=== PATIENT | male | born 1980 | race Caucasian/White ===

== ENCOUNTER 2018-11-16 07:06 | Emergency (ER) | payer OTHER ==
[~2018-11-16] VITALS: Ht 182.9 cm; Wt 88.5 kg
[2018-11-16 07:10] VITALS: BP 153/103
[2018-11-16] MEDS ORDERED: NITROGLYCERIN0.4 MG SUBLING (07:25)
[2018-11-16] MEDS ORDERED: ASPIR 8181 MG PO (07:25)
[2018-11-16 07:31] LABS: ABSOLUTE NEUTROPHILS 12.5 thou/uL (1.4-8.2); BASOPHILS 1.1 % (0.0-2.0); EOSINOPHILS 3.1 % (0.0-3.0); HEMATOCRIT 43.8 % (42.0-52.0); HEMOGLOBIN 14.8 gm/dL (14.0-18.0); LYMPHOCYTES 17.8 % (24.0-44.0); MCHC 33.8 g/dL (28.0-37.0); MCV 88.9 fL (80.0-100.0); MONOCYTES 4.6 % (1.0-8.0); PLATELET COUNT 376 thou/uL (150-400); POLYS 73.4 % (36.0-66.0); RBC 4.93 mil/uL (4.50-6.00); RDW 13.4 % (10.5-14.5); WBC 17.1 thou/uL (4.0-11.0)
[2018-11-16 07:35] LABS: ANION GAP 13 mmol/L (7-16); BUN 14 mg/dL (7-18); CALCIUM 9.7 mg/dL (8.5-10.1); CHLORIDE 104 mmol/L (98-107); CO2 24 mmol/L (21-32); GLUCOSE 144 mg/dL (74-106); POTASSIUM 3.8 mmol/L (3.5-5.1); SODIUM 141 mmol/L (136-145)
[2018-11-16] MEDS ORDERED: CARVEDILOL3.125 MG PO (07:41)
[2018-11-16] MEDS ORDERED: ADDERALL 20 MG20 M1 PO (07:41)
[2018-11-16] MEDS ORDERED: BRILINTA90 MG PO (07:41)
[2018-11-16] MEDS ORDERED: ATORVASTATIN CA40 MG PO (07:41)
[2018-11-16] MEDS ORDERED: SERTRALINE HCL50 MG PO (07:42)
[2018-11-16] MEDS ORDERED: OMEPRAZOLE20 M2 PO (07:42)
[2018-11-16 07:43] LABS: TROPONIN-I <0.06 ng/mL (<0.06)
--- NOTE | 2018-11-16 09:14 | EKG ---
[place] [address] [facility] [place] [address] ELECTROCARDIOGRAM REPORT Name: LUPILOL COVINGTON Room #: REG ROSALINE Persaud#: [id number] ������������������ Admission: 11/16/18 ������������������ Attend Phys: Discharge: ������������������ Date of : 82 Report #: [id number] ����������������������������������������������������������������� [id number] THIS REPORT FOR: //name// [facility] ED Test Date: 2018-11-16 Test Time: 07:12:27 Pat Name: LUPILLO COVINGTON Department: Room: Gender: Tester Operator: IVONE : 1980 Requested By: Jerel Asencio Order Number: [id number] MD: Juarez Villegas Measurements Intervals [place] Rate: 69 P: 69 [place]: 149 QRS: 72 QRSD: 103 T: 51 QT: 395 QTc: 423 Interpretive Statements Sinus rhythm Atrial premature complex Nonspecific ST segment abnormality Baseline wander in lead(s) II,III,aVF No previous ECG available for comparison Electronically Signed On 11-16-2018 9:13:54 CDT by Juarez Villegas [email or web address] ��������������������������������������������� <ELECTRONICALLY SIGNED> ���������������������������������������� By: Juarez Villegas MD, LOCATED WITHIN [facility] ��������������������������������������������� 11/16/18912 1 1 Juarez Villegas MD, FACC /EPI
[2018-11-16 10:32] LABS: ALBUMIN 4.1 g/dL (3.4-5.0); DIRECT BILIRUBIN < 0.1 mg/dL (<0.1-0.3); LIPASE 113 U/L (73-393); SGOT 30 U/L (15-37); SGPT 50 U/L (30-65); TOTAL BILIRUBIN 0.2 mg/dL (<0.1-1.0); TOTAL PROTEIN 7.2 g/dL (6.4-8.2)
[2018-11-16 10:57] LABS: AMP/METHAMP Negative (Negative); BARBITURATES Negative (Negative); BENZODIAZEPINES Negative (Negative); COCAINE Negative (Negative); METHADONE Negative (Negative); OPIATES POSITIVE (Negative); PCP Negative (Negative)
[2018-11-16 12:56] VITALS: BP 146/89
--- NOTE | 2018-11-17 08:06 | EKG ---
[facility] [address] [place] [address] ELECTROCARDIOGRAM REPORT Name: ADRIALUPILLO BOOTHE Room #: DEP ROSALINE Persaud#: [id number] ������������������ Admission: 11/16/18 ������������������ Attend Phys: Discharge: 11/16/18 ������������������ Date of : 82 Report #: [id number] ����������������������������������������������������������������� [id number] THIS REPORT FOR: //name// [facility] ED Test Date: 2018-11-16 Test Time: 10:04:56 Pat Name: LUPILLO COVINGTON Department: Room: 170 Gender: M [employer] Nursing: IVONE : 1980 Requested By: Jerel Asencio Order Number: [id number] MD: Juarez Villegas Measurements Intervals [place] Rate: 65 P: 76 [place]: 154 QRS: 70 QRSD: 106 T: -18 QT: 406 QTc: 423 Interpretive Statements Sinus rhythm Nonspecific ST and T wave abnormality Compared to ECG 11/16/2018 07:12:27 Early repolarization now present Atrial premature complex(es) no longer present Electronically Signed On 11-17-2018 8:06:27 CDT by Juarez Villegas [email or web address] ��������������������������������������������� <ELECTRONICALLY SIGNED> ���������������������������������������� By: Juarez Villegas MD, [facility] ��������������������������������������������� 11/17/18 0806 [id number] Juarez Villegas MD, [facility] /EPI
== END 2018-11-16 12:58 | disposition left against medical advice (07) ==
LOC: ER 07:06 → EROBS 12:13 → ER 12:58
PROVIDERS: Emergency Medicine
DX: I21.4 Non-ST elevation (NSTEMI) myocardial infarction (principal); R79.89 Other specified abnormal findings of blood chemistry; I10 Essential (primary) hypertension; E78.00 Pure hypercholesterolemia, unspecified